=== PATIENT | female | born 1980 | race Caucasian/White ===

== ENCOUNTER 2023-04-23 07:53 | Emergency (ER) | payer BC ==
[~2023-04-23] VITALS: Ht 170.2 cm; Wt 60.3 kg
[2023-04-23 08:09] VITALS: BP 148/103; PULSE 104; RESP 16; TEMP 97; O2SAT 100
[2023-04-23 09:03] LABS: BASOPHILS % (AUTO) 0.6 % (0.0-2.0); EOSINOPHILS % (AUTO) 0.7 % (0.0-4.0); HEMATOCRIT 34.7 % (36-48); HEMOGLOBIN 11.8 g/dL (12.0-16.0); LYMPHOCYTES # (AUTO) 1.7 K/uL (2.5-16.5); MEAN CORPUSCULAR HEMOGLOBIN 31 pg (27-31); MEAN CORPUSCULAR HGB CONC 34 g/dL (33-37); MONOCYTES # (AUTO) 0.3 K/uL (0.8-1.0); MONOCYTES % (AUTO) 5.2 % (1.7-9.3); NEUTROPHILS # (AUTO) 2.9 K/uL (1.8-7.7); NEUTROPHILS % (AUTO) 58.5 % (42.2-75.2); PLATELET COUNT (AUTO) 308 K/uL (140-450); RED BLOOD CELL COUNT(AUTO) 3.85 MIL/uL (4.20-5.40); RED CELL DISTRIBUTION WIDTH 13.2 % (11.6-13.7); WHITE BLOOD COUNT (AUTO) 4.9 K/uL (4.8-10.8)
[2023-04-23] MEDS: ACETAMINOPHEN EXTRA STRENGTH 500 MG TAB PO ONE (09:04)
[2023-04-23] MEDS: FAMOTIDINE 20 MG TAB PO ONE (09:04)
[2023-04-23 09:10] LABS: CALCIUM 8.7 mg/dL (8.5-10.1); CARBON DIOXIDE 27.7 mmol/L (21-32); CREATININE 0.6 mg/dL (0.6-1.3); POTASSIUM 3.7 mmol/L (3.5-5.1)
[2023-04-23] MEDS ORDERED: FAMO-92 PO (09:47)
[2023-04-23 10:01] VITALS: BP 134/65; PULSE 82; RESP 18; TEMP 98.3; O2SAT 97
== END 2023-04-23 10:00 | disposition home or self-care (01) ==
LOC: MED 07:53
DX: R07.9 Chest pain, unspecified (principal); Z79.899 Other long term (current) drug therapy
CPT/HCPCS: 36415; 71045; 80048; 84484; 85025; 93005; 99285